=== PATIENT | male | born 1990 | race Two or more races ===

== ENCOUNTER 2023-01-27 13:48 | Emergency (ER) | payer OTHER ==
[~2023-01-27] VITALS: Ht 182.9 cm; Wt 104.3 kg
[2023-01-27] MEDS ORDERED: ACETAMINOPHEN ES 500 MG TABLET ONE (14:19)
[2023-01-27] MEDS ORDERED: IBUPROFEN 400 MG TABLET ONE (14:19)
--- NOTE | 2023-01-27 14:26 | NUR ---
XRAY AT BEDSIDE
[2023-01-27] MEDS ORDERED: ACETAMINOPHEN ES 500 MG TABLET PO ONE (14:30)
[2023-01-27] MEDS ORDERED: IBUPROFEN 400 MG TABLET PO ONE (14:30)
--- NOTE | 2023-01-27 15:45 | NUR ---
patient's left ankle wrapped and given crutches
--- NOTE | 2023-01-27 15:48 | NUR ---
Patient discharged to home in stable condition, ambulating wiuth crutches. Written and verbal after care instructions given. Patient verbalizes understanding of instruction.
[2023-01-27 15:49] VITALS: BP 121/78
== END 2023-01-27 15:49 | disposition home or self-care (01) ==
LOC: ER 14:06
DX: S93.492A Sprain of other ligament of left ankle, initial encounter (principal); W01.0XXA Fall on same level from slipping, tripping and stumbling without subsequent striking against object, initial encounter; Y93.89 Activity, other specified; Y92.89 Other specified places as the place of occurrence of the external cause; Y99.8 Other external cause status
CPT/HCPCS: 73610-TC